=== PATIENT | female | born 1960 | race Caucasian/White ===

== ENCOUNTER → 2024-12-08 | Outpatient (CLI) | payer OTHER, SELFPAY ==
--- NOTE | 2024-12-08 09:30 | XR_ITS ---
Examination: CT abdomen and pelvis without contrast. Coronal 3-D reconstructions. Sagittal 2-D reconstructions. Date and time of exam:December 08, 2024 0928 hours Comparison October 26, 2023 INDICATIONS: History and diagnosis ventral hernia, right lower abdominal pain 2 months CTDI: vol (mGy): 12.8 DLP: (mGycm): 687 Technique: Axial images of the abdomen have been obtained, 3 mm slice thickness Intravenous contrast material has not been administered. Low dose protocols were performed. One or more of the following dose reduction techniques were used; automated exposure control, adjustment of the mA and/or KV according to patient size, use of iterative reconstruction technique. Findings: No focal liver or splenic lesion No gallstones No pancreatic mass 28 mm fat-containing left adrenal mass No renal or ureteral calculi, no hydronephrosis Aorta normal size 4 mm fat-containing umbilical hernia Colonic diverticulosis, no diverticulitis Normal appendix No bowel obstruction Absent uterus No femoral or inguinal hernias Prominent osteopenia IMPRESSION: 28 mm fat-containing left adrenal mass 4 mm fat-containing umbilical hernia
== END | disposition home or self-care (01) ==
PROVIDERS: PCP Internal Medicine; Referring Provider Surgery; Visit Provider Surgery
DX: E27.8 Other specified disorders of adrenal gland (principal); K42.9 Umbilical hernia without obstruction or gangrene
CPT/HCPCS: 74176

== ENCOUNTER → 2025-04-13 | Outpatient (CLI) | payer MEDICARE, OTHER, SELFPAY ==
--- NOTE | 2025-04-13 14:14 | XR_ITS ---
EXAMINATION: PA lateral chest 2 views TECHNIQUE: Upright PA lateral chest 2 views Date and time: April 13, 2025, 1500 hours INDICATIONS: Positive PPD 1997 FINDINGS: Probable scarring in the lingular segment on the lateral view Normal heart size No pneumonia or pulmonary edema Prominent osteopenia IMPRESSION: No radiographic findings of active tuberculosis
--- NOTE | 2025-04-13 14:30 | XR_ITS ---
Examination: Bone densitometry Date and time of exam: April 13, 2025, 1435 hours INDICATIONS: Hysterectomy age 34 prednisone and Synthroid administration postmenopausal ankle fracture Technique: Lumbar spine and hip total bone mineralization values of an calculated. Peak reference and age match control results have been displayed. Findings: Lumbar spine total bone mineralization is 0.955 gm/cm2. This is 0.8 standard deviations below peak reference. This is 1.0 standard deviations above age-matched controls. Hip total bone mineralization is 0.807 gm/cm2 This is 1.1 standard deviations below peak reference. This is 0.2 standard deviations above age-matched controls Impression: There is normal mineralization based on lumbar spine measurements. There is osteopenia based on hip measurements Lumbar mineralization is increased 1.8% compared with April 10, 2023 Hip mineralization is increased 2.2% compared with April 10, 2023
--- NOTE | 2025-04-13 14:50 | XR_ITS ---
Examination: Screening digital mammography, bilateral Computer aided detection 3-D breast Tomosynthesis, bilateral Date and time of exam: April 13, 2025, 1420 hours, compared to mammograms dating to September 27, 2014 Indication: Screening Technique: Nonmagnified MLO, CC views of the breasts to been obtained, reconstructed from 3-D Tomosynthesis images. R2 computer aided detection program utilized for evaluation of suspicious masses and/or abnormal calcifications. 3-D Tomosynthesis images obtained. Findings: Scattered areas of fibroglandular density Stable focal asymmetry slightly outer right breast on the cc view No interval suspicious masses Impression: BI-RADS category II: Benign Findings. Recommend 1 year follow-up mammogram.
== END | disposition home or self-care (01) ==
PROVIDERS: Referring Provider Internal Medicine; Visit Provider Internal Medicine
DX: Z12.31 Encounter for screening mammogram for malignant neoplasm of breast (principal); R92.323 Mammographic fibroglandular density, bilateral breasts; M85.89 Other specified disorders of bone density and structure, multiple sites; R76.11 Nonspecific reaction to tuberculin skin test without active tuberculosis
CPT/HCPCS: 71046; 77063; 77067; 77080

== ENCOUNTER 2025-06-16 09:15 | Day surgery (SDC) | payer OTHER, SELFPAY ==
--- NOTE | 2025-06-13 06:30 | EKG_ITS ---
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
[2025-06-13 08:49] VITALS: BMI 32.9
[2025-06-13 10:06] LABS: Basophils # (Auto) 0.1 Thou/mm3 (0.0-0.2); Basophils % (Auto) 1 % (0-2.5); Eosinophils # (Auto) 0.2 Thou/mm3 (0.0-0.5); Eosinophils % (Auto) 2 % (0-10); Hematocrit 38.7 % (36.0-46.0); Hemoglobin 12.9 g/dL (12.0-16.0); Immature Granulocytes Auto 0.02 Thou/mm3 (0.00-0.00); Lymphocytes # (Auto) 1.6 Thou/mm3 (1.0-4.8); Lymphocytes % (Auto) 20 % (10-50); Mean Corpuscular HGB Conc 33.3 g/dl (31.0-37.0); Mean Corpuscular Hemoglobin 30.0 pg (25.0-35.0); Mean Corpuscular Volume 90 fL (80-100); Monocytes # (Auto) 0.5 Thou/mm3 (0.0-0.8); Monocytes % (Auto) 7 % (0-12); Neutrophils # (Auto) 5.3 Thou/mm3 (1.8-7.7); Neutrophils % (Auto) 70 % (37-80); Nucleated Red Blood Cell # 0.00 Thou/mm3 (0.00-0.00); Nucleated Red Blood Cell % 0 /100 WBC (0); Platelet Count 431 Thou/mm3 (140-440); RDW Standard Deviation 41.2 fL (36.4-46.3); Red Blood Count 4.30 Miln/mm3 (4.00-5.20); White Blood Count 7.6 Thou/mm3 (3.6-11.0)
[2025-06-13 10:13] LABS: INR 1.0 (0.9-1.3); Partial Thromboplastin Time 27.2 Seconds (22.0-36.0); Prothrombin Time 10.8 Seconds (9.0-12.2)
[2025-06-13 10:15] LABS: Alanine Aminotransferase 17 U/L (10-49); Albumin, Serum 4.6 gm/dL (3.4-4.8); Albumin/Globulin Ratio 1.8 (1.2-2.2); Alkaline Phosphatase 71 U/L (46-116); Anion Gap 8 (7-16); Aspartate Amino Transferase 23 U/L (0-34); BUN/Creatinine Ratio 24 Ratio (12-20); Bilirubin,Total 0.3 mg/dL (0.3-1.2); Blood Urea Nitrogen 19 mg/dL (9-23); Calcium 9.9 mg/dL (8.3-10.6); Calcium (Corrected) 9.9 mg/dL (8.5-10.1); Carbon Dioxide 29.9 mMol/L (20.0-31.0); Chloride 103 mMol/L (98-107); Creatinine (Component) 0.8 mg/dL (0.6-1.3); Estimated Creatinine Clearance 68.5 mL/min (>60); Globulin 2.6 gm/dL (2.3-3.5); Glucose 89 mg/dL (74-106); Osmolality,Calculated 282 (275-295); Potassium 3.8 mMol/L (3.4-5.1); Sodium 141 mMol/L (136-145); Total Protein 7.2 gm/dL (5.7-8.2); eGFR > 60 See Note
[2025-06-16] VITALS (7 sets, daily range): BP systolic 121–142; BP diastolic 61–83; PULSE 66–83; RESP 12–23; TEMP 36.1–36.4; O2SAT 95–100; BMI 33.0
[2025-06-16] MEDS: RINGERS LACTATED 1000 ML 1,000 ML 20 ML IV (10:07)
--- NOTE | 2025-06-16 12:26 | PD.SUROPNT ---
Date of Procedure 06/16/25 Pre Op Diagnosis Symptomatic ventral hernia right lower quadrant of the abdomen Post Op Diagnosis Same Procedure Repair of the ventral hernia using 1.[address] mesh and 1 x 4 Marlex mesh reinforcement as an onlay patch Findings Patient was found to have a symptomatic ventral hernia which is located on the right flank below and lateral to the umbilicus. This was painful but reducible. Procedure Description After the patient was brought to the operating room endotracheal anesthesia was given. The lower abdomen was prepped with ChloraPrep solution and draped in a sterile manner. The hernia was marked in the preop area with a marker because when the patient lies down the hernia could not be palpated. It was only obvious when she was standing up and coughing. After the timeout was performed I injected local anesthesia with half percent Marcaine and made an incision over the right flank. Incision was carried down to subcutaneous tissue where there was a fatty tissue because of her obesity. After cleaning the external oblique I went medial on the and found out there was a defect palpable right lower quadrant. This was very close to the pelvis. After I was able to feel the defect through which fatty tissue was coming out. I did not get into the abdominal cavity replaced mesh underneath the fascia by reducing this fatty tissue without removing it. The defect measured about 3.5 to 4 cm and I placed a 1.[address] mesh. The Marlex straps were attached to the fascial edges with 2-0 Prolene. At the end I felt that an onlay patch may also be required because of the week fascia. I placed a 1 x 4 Marlex mesh and cut it into half to make it 1 x 2 inch patch. This was placed as an onlay patch and attached it to the fascia using 2-0 Prolene each corner. Then I closed the subcutaneous tissue with 3-0 plain the skin was closed with 4-0 Monocryl after injecting local anesthesia with half percent Marcaine. Dressing was applied with Adaptic and 4 x 4 gauze and patient tolerated the procedure well. Anesthesia [employer] Implants comments: 1.[address] mesh, 1 x 2onlay Marlex patch Pathology / specimen None IVF Infused 500 Estimated Blood Loss 20 Surgeon Stacia Stark MD Surgical Staff Operation Date: 06/16/25 11:30 Case Staff Anesthesiologist: Khris Mercado RN First Assistant: Dasha Patel
--- NOTE | 2025-06-16 12:27 | SUR.PHASEI ---
pt received from OR in recovery bay 1. pt asleep but responds to voice, breathing unlabored on oxymask 6l. v/s stable. pt dressing to right lower abd cdi. report received from Damián Waldrop and Dr. Mercado.
--- NOTE | 2025-06-16 12:55 | SUR.PHASEI ---
pt able to tolerate oral fluids without difficulty swallowing or nausea/vomiting.
--- NOTE | 2025-06-16 13:34 | SUR.PHASEII ---
pt awake and alert, breathing unlabored on room air. v/s stable. pt dressing to right lower abd cdi. pt able to ambulate to wheelchair with steady gait. d/c instructions given with Joe in room, all questions answered. pt d/c via wheelchair with all belongings.
== END 2025-06-16 13:34 | disposition home or self-care (01) ==
PROVIDERS: PCP Internal Medicine; Referring Provider Surgery; Visit Provider Surgery
PROC: (CPT 49593; principal; 2025-06-16 11:15)
DX: K43.9 Ventral hernia without obstruction or gangrene (principal); Z01.810 Encounter for preprocedural cardiovascular examination; E66.9 Obesity, unspecified; I10 Essential (primary) hypertension; J45.909 Unspecified asthma, uncomplicated; Z79.899 Other long term (current) drug therapy
CPT/HCPCS: 49593; 36415; 80053; 85025; 85610; 85730; 93005; A4649; C1781; J0131; J2250; J2704; J3010; J7120